=== PATIENT | female | born 1985 | race Caucasian/White ===

== ENCOUNTER → 2021-02-03 07:13 | Outpatient (CLI) | payer OTHER, SELFPAY ==
--- NOTE | 2021-02-03 | DI.US.S_ITS ---
PROCEDURE: US OB <= 14 WEEKS FETUS INDICATIONS: DATES OUTSIDE/PRIOR DATING DATA: Last menstrual period (LMP): Not available LMP-based estimated date of delivery (COCO): Not available First dating scan (date and location): 02/03/21, this study Estimated date of delivery (COCO) from first dating scan: 09/29/21, +/-5 days TECHNIQUE: Real-time scanning was performed of the fetus and maternal pelvic organs, with image documentation. Endovaginal scanning was also performed to better visualize the fetus and maternal ovaries. COMPARISON: None. FINDINGS: Embryo: [place]-rump length not identifiable, but mean sac diameter is 1.2 cm which correlates with a 6 weeks 0 day gestational age. Measurement variability in dating: +/- 4 weeks by LMP, +/- 7 days by mean sac diameter (use before 6 weeks gestation if crown-rump length not able to be measured), +/- 5 days by crown-rump length (up to 8 weeks 6 days gestation), +/- 7 days by crown-rump length (up to 13 weeks 6 days gestation). Maternal organs: Ovaries normal considering gestational status . IMPRESSION: A viable intrauterine gestation is not yet established. The mean sac diameter of the presumed intrauterine gestation measures only 1.2 cm which correlates with a gestational age of 6 weeks 0 days, +/-7 days. Please correlate with quantitative beta HCG or obtain follow-up OB ultrasound in 7-10 days to establish viable gestation. Dictated by: Oswaldo Burleson M.D. on 02/03/2021 at 9:34 Approved by: Oswaldo Burleson M.D. on 02/03/2021 at 9:36
== END ==
PROVIDERS: PCP Student in an Organized Health Care Education/Training Program; Referring Provider Student in an Organized Health Care Education/Training Program; Visit Provider Student in an Organized Health Care Education/Training Program
DX: Z36.87 Encounter for antenatal screening for uncertain dates (principal)
CPT/HCPCS: 76801; 76830

== ENCOUNTER → 2021-02-04 17:57 | Outpatient (CLI) | payer OTHER, SELFPAY ==
[2021-02-04 19:15] LABS: HCG Quantitative /Beta subunit 14707 mIU/mL
== END ==
PROVIDERS: PCP Student in an Organized Health Care Education/Training Program; Referring Provider Student in an Organized Health Care Education/Training Program; Visit Provider Internal Medicine Rheumatology
DX: Z34.00 Encounter for supervision of normal first pregnancy, unspecified trimester (principal)
CPT/HCPCS: 36415; 84702

== ENCOUNTER → 2021-02-06 18:27 | Outpatient (CLI) | payer OTHER, SELFPAY ==
[2021-02-06 19:34] LABS: HCG Quantitative /Beta subunit 17918 mIU/mL
== END ==
PROVIDERS: PCP Student in an Organized Health Care Education/Training Program; Referring Provider Student in an Organized Health Care Education/Training Program; Visit Provider Student in an Organized Health Care Education/Training Program
DX: Z34.00 Encounter for supervision of normal first pregnancy, unspecified trimester (principal)
CPT/HCPCS: 36415; 84702

== ENCOUNTER → 2021-02-15 07:11 | Outpatient (CLI) | payer OTHER, SELFPAY ==
--- NOTE | 2021-02-15 | DI.US.S_ITS ---
PROCEDURE: US OB <= 14 WEEKS FETUS INDICATIONS: GROWTH AND DATES OUTSIDE/PRIOR DATING DATA: Last menstrual period (LMP): Not available. LMP-based estimated date of delivery (COCO): Not available. First dating scan (date and location): 02/03/21. Estimated date of delivery (COCO) from first dating scan: Viable gestation not found. TECHNIQUE: Real-time scanning was performed of the fetus and maternal pelvic organs, with image documentation. Endovaginal scanning was also performed to better visualize the fetus and maternal ovaries. COMPARISON: Merged with [facility], OB <= 14 WEEKS FETUS, 02/03/2021, 7:29. FINDINGS: Embryo: Not seen Heart rate: Not applicable Measurement variability in dating: +/- 4 weeks by LMP, +/- 7 days by mean sac diameter (use before 6 weeks gestation if crown-rump length not able to be measured), +/- 5 days by crown-rump length (up to 8 weeks 6 days gestation), +/- 7 days by crown-rump length (up to 13 weeks 6 days gestation). Maternal organs: Ovaries normal . IMPRESSION: A viable intrauterine gestation is not seen. No secondary sonographic evidence of is identified. Correlation with quantitative beta HCG sequentially likely is warranted to ensure that there is no evidence of ectopic by laboratory analysis. Dictated by: Oswaldo Burleson M.D. on 02/15/2021 at 10:33 Approved by: Oswaldo Burleson M.D. on 02/15/2021 at 10:35
== END ==
PROVIDERS: PCP Student in an Organized Health Care Education/Training Program; Referring Provider Student in an Organized Health Care Education/Training Program; Visit Provider Student in an Organized Health Care Education/Training Program
DX: O36.80X0 Pregnancy with inconclusive fetal viability, not applicable or unspecified (principal)
CPT/HCPCS: 76801; 76817

== ENCOUNTER → 2021-02-22 14:28 | Outpatient (CLI) | payer OTHER, SELFPAY ==
[2021-02-22 16:31] LABS: HCG Quantitative /Beta subunit 16549 mIU/mL
== END ==
PROVIDERS: PCP Student in an Organized Health Care Education/Training Program; Referring Provider Student in an Organized Health Care Education/Training Program; Visit Provider Student in an Organized Health Care Education/Training Program
DX: Z34.00 Encounter for supervision of normal first pregnancy, unspecified trimester (principal)
CPT/HCPCS: 36415; 84702

== ENCOUNTER → 2021-03-02 09:51 | Outpatient (CLI) | payer OTHER, SELFPAY ==
[2021-03-02 11:14] LABS: HCG Quantitative /Beta subunit 4975.6 mIU/mL
== END ==
PROVIDERS: PCP Student in an Organized Health Care Education/Training Program; Referring Provider Student in an Organized Health Care Education/Training Program; Visit Provider Student in an Organized Health Care Education/Training Program
DX: Z34.00 Encounter for supervision of normal first pregnancy, unspecified trimester (principal)
CPT/HCPCS: 36415; 84702

== ENCOUNTER → 2021-03-31 09:08 | Outpatient (CLI) | payer OTHER, SELFPAY ==
[2021-03-31 10:37] LABS: HCG Quantitative /Beta subunit 60.4 mIU/mL
== END ==
PROVIDERS: PCP Student in an Organized Health Care Education/Training Program; Referring Provider Student in an Organized Health Care Education/Training Program; Visit Provider Student in an Organized Health Care Education/Training Program
DX: Z34.00 Encounter for supervision of normal first pregnancy, unspecified trimester (principal)
CPT/HCPCS: 36415; 84702

== ENCOUNTER → 2021-11-24 13:15 | Outpatient (CLI) | payer OTHER, SELFPAY ==
[2021-11-24 14:35] LABS: HCG Quantitative /Beta subunit 61582 mIU/mL
== END ==
PROVIDERS: PCP Student in an Organized Health Care Education/Training Program; Referring Provider Specialist; Visit Provider Specialist
DX: O20.0 Threatened abortion (principal)
CPT/HCPCS: 36415; 84702

== ENCOUNTER → 2021-11-28 10:06 | Outpatient (CLI) | payer OTHER, SELFPAY ==
[2021-11-28 16:54] LABS: HCG Quantitative /Beta subunit 96824 mIU/mL
== END ==
PROVIDERS: PCP Student in an Organized Health Care Education/Training Program; Referring Provider Specialist; Visit Provider Specialist
DX: O20.0 Threatened abortion (principal); Z3A.01 Less than 8 weeks gestation of pregnancy
CPT/HCPCS: 36415; 84702

== ENCOUNTER → 2021-12-19 15:17 | Outpatient (CLI) | payer OTHER, SELFPAY ==
[2021-12-19 16:37] LABS: Add Manual Diff / Slide Review NO; Basophils Absolute Auto 0 /uL (0-100); Basophils Percent Auto 0.4 % (0-2); Eosinophils Absolute Auto 100 /uL (0-450); Eosinophils Percent Auto 0.7 % (2-4); Hematocrit 35.8 % (36-46); Hemoglobin 12.4 g/dL (12.0-16.0); Lymphocytes Absolute Auto 2400 /uL (1100-4500); Lymphocytes Percent Auto 28.9 % (25-40); Mean Corpuscular HGB Conc 34.6 % (30-36); Mean Corpuscular Hemoglobin 33.3 PG (26-34); Mean Corpuscular Volume 96.2 fL (80-100); Monocytes Absolute Auto 400 /uL (0-900); Monocytes Percent Auto 5.1 % (3-14); Neutrophils Absolute Auto 5500 /uL (1500-7000); Neutrophils Percent Auto 64.9 % (50-75); Platelet Count 233 X10^3/uL (150-400); Red Blood Cell Count 3.73 X10^6/uL (4.0-5.2); Red Cell Distribution Width 12.8 % (11.6-14.8); White Blood Cell Count 8.5 X10^3/uL (4.5-11.0)
[2021-12-19 16:54] LABS: Appearance Urine UA CLEAR; Bilirubin Urine UA NEGATIVE (NEGATIVE); Color Urine UA YELLOW; Glucose Urine UA NEGATIVE (Negative); Ketones Urine UA NEGATIVE (NEGATIVE); Leukocyte Esterase Urine UA NEGATIVE (NEGATIVE); Nitrite Urine UA NEGATIVE (Negative); Occult Blood Urine UA TRACE-LYSED (Negative); Protein Urine UA NEGATIVE (Negative); Urobilinogen Urine UA 0.2 E.U./dL (0.2)
[2021-12-19 17:58] LABS: HIV 1 & 2 Ab/Ag 4th Gen Combo NEGATIVE (NEGATIVE); Hep C Virus Ab w/Reflex Quant NEGATIVE s/c (NEGATIVE); Hepatitis B Surface Antigen NEGATIVE s/c (NEGATIVE); Rubella Antibody IgG > 350.0 IU/mL (>15)
[2021-12-20 05:23] LABS: RPR Screen Non Reactive (Non Reactive)
[2021-12-20 09:27] LABS: Varicella IgG Antibody 1884 index (Immune >165)
== END ==
PROVIDERS: PCP Student in an Organized Health Care Education/Training Program; Referring Provider Specialist; Visit Provider Specialist
DX: Z34.81 Encounter for supervision of other normal pregnancy, first trimester (principal)
CPT/HCPCS: 36415; 80055; 81003; 86787; 86803; 86850; 86900; 86901; 87389

== ENCOUNTER → 2022-02-14 15:09 | Outpatient (CLI) | payer OTHER, SELFPAY ==
[2022-02-16 20:35] LABS: AFP Value 43.3 ng/mL (.); Gest Age on Col Date 18.4 weeks (.); Insulin Dep Diabetes No (.); OSBR Risk 1IN 10000 (.); Results Report (.); Test Results *Screen Negative* (.)
== END ==
PROVIDERS: PCP Student in an Organized Health Care Education/Training Program; Referring Provider Obstetrics & Gynecology; Visit Provider Obstetrics & Gynecology
DX: Z34.82 Encounter for supervision of other normal pregnancy, second trimester (principal); Z3A.18 18 weeks gestation of pregnancy
CPT/HCPCS: 36415; 82105

== ENCOUNTER → 2022-04-19 09:16 | Outpatient (CLI) | payer OTHER, SELFPAY ==
[2022-04-19 11:48] LABS: Hematocrit 36.6 % (36-46); Hemoglobin 12.6 g/dL (12.0-16.0)
[2022-04-19 12:31] LABS: GTT (PREG) 1 Hour PP 50gm Dose 95 mg/dL (76-139)
== END ==
PROVIDERS: PCP Student in an Organized Health Care Education/Training Program; Referring Provider Obstetrics & Gynecology; Visit Provider Obstetrics & Gynecology
DX: Z34.82 Encounter for supervision of other normal pregnancy, second trimester (principal); Z3A.25 25 weeks gestation of pregnancy
CPT/HCPCS: 36415; 82950; 85014; 85018

== ENCOUNTER → 2022-05-24 08:06 | Outpatient (CLI) | payer OTHER, SELFPAY | PROVIDERS: PCP Student in an Organized Health Care Education/Training Program; Visit Provider Obstetrics & Gynecology | DX: Z34.83 Encounter for supervision of other normal pregnancy, third trimester (principal); Z3A.32 32 weeks gestation of pregnancy | CPT/HCPCS: 87086 ==

== ENCOUNTER → 2022-06-20 16:33 | Outpatient (CLI) | payer OTHER, SELFPAY ==
[2022-06-21 15:26] LABS: Strep Grp B PCR NEG for Grp B Strep
== END ==
PROVIDERS: PCP Student in an Organized Health Care Education/Training Program; Visit Provider Obstetrics & Gynecology
DX: Z34.83 Encounter for supervision of other normal pregnancy, third trimester (principal); Z3A.36 36 weeks gestation of pregnancy
CPT/HCPCS: 87653

== ENCOUNTER 2022-06-20 16:34 | Outpatient (CLI) | payer OTHER, SELFPAY | END 2022-06-20 18:03 | disposition home or self-care (01) | LOC: OB 06-23 16:43 | PROVIDERS: PCP Student in an Organized Health Care Education/Training Program; Referring Provider Obstetrics & Gynecology; Visit Provider Obstetrics & Gynecology | DX: O36.5930 Maternal care for other known or suspected poor fetal growth, third trimester, not applicable or unspecified (principal); Z3A.36 36 weeks gestation of pregnancy; Z34.83 Encounter for supervision of other normal pregnancy, third trimester | CPT/HCPCS: 59025; 87653; G0378; G0379 ==

== ENCOUNTER 2022-06-23 12:00 | Outpatient (CLI) | payer OTHER, SELFPAY ==
[2022-06-23 13:50] LABS: Alanine Aminotransferase 15 IU/L (<35); Albumin 3.4 g/dL (3.5-5.0); Albumin Globulin Ratio 1.1 (1.0-2.8); Alkaline Phosphatase 119 U/L (38-126); Aspartate Aminotransferase 24 IU/L (14-36); BUN Creatinine Ratio 19.2 (6-22); Bilirubin Total 0.3 mg/dL (0.2-1.3); Blood Urea Nitrogen 14 mg/dL (7-17); Calcium 8.7 mg/dL (8.4-10.2); Carbon Dioxide 23 mmol/L (22-32); Chloride 107 mmol/L (98-107); Estimated Glomerular Filt Rate > 60 mL/min (>60); Glucose 70 mg/dL (70-100); HEMOLYSIS < 15 (0-50); Potassium 3.9 mmol/L (3.4-5.1); Sodium 136 mmol/L (137-145); Total Protein 6.4 g/dL (6.3-8.2)
[2022-06-23 13:58] LABS: Creatinine Urine Random 154.3 mg/dL
[2022-06-23 14:00] LABS: Protein (Total) Urine Random < 5 mg/dL (0-12); Protein Creatinine Ratio Urine 0.03 GRAM/24H
--- NOTE | 2022-06-23 14:14 | P.TNLD_ITS ---
Visit Information Visit Information Date of evaluation: 06/23/22 Primary OB Provider: Karly Massey On-call OB Provider: Karly Massey Reason for Evaluation: Yes non-stress test Comments/Additional reasons for admission: Here for a nonstress test for complete biophysical profile due to growth restriction. Recent office ultrasound showed EFW 7 percentile. 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 BP today 8/8. On presentation today BP mildly elevated as below. She also had a mild elevated BP 3 days ago, on 06/20, when here for NST as well which then decreased back to normal. Just before the NST BP had been normal in the office, but then discussion ensued regarding growth restriction. She denies headache, scotomata, nausea or abdominal pain. She is scheduled for induction of labor in 3 days for the growth restriction. Vital Signs Vital Signs: Initial BP 135/90 then 147/90, 142/88. After approximately 1 hour BP 137/83 On 06/20 BP 141/91, 143/95, then 130/85 [facility] Medical History (Updated 06/21/22 @ 10:35 by Val Clark MD) Chickenpox Encounter for supervision of other normal , unspecified trimester UTI (urinary tract infection) Surgical History (Updated 12/18/21 @ 22:06 by Astrid Jacobo) Anesthesia No history of previous surgery [place] teeth removed Family History (Updated 12/18/21 @ 22:07 by Astrid Jacobo) Father Hypertension Hyperlipidemia Overweight Mother Hypertension Hyperlipidemia Depression Overweight Mental health problem Sister Overweight Social History (Updated 12/12/21 @ 16:15 by Barb Tejada RN) marital status: number of children: 0 household members: spouse lives independently: Yes housing: house pets and animals: Yes (2 dogs) education level: master's degree occupational status: employed current occupational exposures/hazards: Yes 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 travel history: over 6 months ago seatbelt use: always water heater temp set < 120 deg: Yes working smoke detector in home: Yes fire extinguisher in home: Yes carbon monox detector in home: Yes firearms in home: No do you feel safe at home: Yes Smoking Status: Never smoker second hand exposure: No alcohol intake: former substance use type: does not use during the past year weight has: remained stable well-balanced diet: daily or most days daily servings fruits/ve or more times/day caffeine: Yes (1 cup coffee/day) Type(s) of exercise: regular exercise frequency: 3-4 times per week Exam Vital Signs (past 8 hours): BP 135 -147/90, then after while decreased to 137/83 Narrative Exam Narrative: General: Well-appearing female in no acute distress Abdomen gravid, nontender Extremities no edema DTR 1+ patellar reflex Objective Labs Result Diagrams: 06/23/22 13:00 06/23/22 13:00 Labs: Laboratory Results - last 24 hr 06/23/22 06/23/22 06/23/22 13:00 13:00 13:00 WBC 8.7 RBC 3.63 L Hgb 12.5 Hct 36.5 MCV 100.5 H MCH 34.3 H MCHC 34.2 RDW 13.3 Plt Count 213 Neut % (Auto) 68.1 Lymph % (Auto) 25.8 [place] % (Auto) 5.2 Eos % (Auto) 0.4 L Baso % (Auto) 0.5 Neut # (Auto) 5900 Lymph # (Auto) 2200 [place] # (Auto) 500 Eos # (Auto) 0 Baso # (Auto) 0 Sodium 136 L Potassium 3.9 Chloride 107 Carbon Dioxide 23 BUN 14 Creatinine 0.73 Estimated GFR > 60 BUN/Creatinine Ratio 19.2 Glucose 70 Calcium 8.7 Total Bilirubin 0.3 AST 24 ALT 15 Alkaline Phosphatase 119 Total Protein 6.4 Albumin 3.4 L Globulin 3.0 Albumin/Globulin Ratio 1.1 U Random Total Protein < 5 Urine Creatinine 154.3 Protein/Creatinin Ratio 0.03 Evaluation Evaluation Baseline heart rate: 135 Variability: Moderate (11-25) monitor accelerations: Present Monitor Decelerations: Absent Category of Tracing: Reactive Status: Category l Diagnosis, Plan/Disposition Plan/Disposition Plan: 37 yo P0 with EGA 36wk6d with 1. growth restriction, EFW 6 percentile 2. Probable developing gestational hypertension, no signs of preeclampsia Reassuring testing today with reactive NST, BPP 10/10. Preeclamptic labs ordered and were normal. Urine protein/creatinine ratio was 0.03, normal. She is already scheduled for induction of labor for the growth restriction in 3 days. Reviewed symptoms of preeclampsia to call for. Patient also to check routine activity and call for decreased movement, as well as calling for other routine signs and symptoms of labor. OB Disposition: home
== END 2022-06-23 14:15 | disposition home or self-care (01) ==
LOC: LABOR 13:55 → OB 07-18 09:55
PROVIDERS: Obstetrics & Gynecology; PCP Student in an Organized Health Care Education/Training Program; Referring Provider Obstetrics & Gynecology; Visit Provider Obstetrics & Gynecology
DX: O36.5930 Maternal care for other known or suspected poor fetal growth, third trimester, not applicable or unspecified (principal); Z3A.36 36 weeks gestation of pregnancy
CPT/HCPCS: 59025; 59050; 80053; 82570; 84156; G0378; G0379

== ENCOUNTER 2022-06-26 06:53 | Inpatient (IN) | payer OTHER, SELFPAY ==
[2022-06-26 07:58] LABS: Add Manual Diff / Slide Review NO; Basophils Absolute Auto 0 /uL (0-100); Basophils Percent Auto 0.6 % (0-2); Eosinophils Absolute Auto 0 /uL (0-450); Eosinophils Percent Auto 0.5 % (2-4); Hematocrit 35.9 % (36-46); Hemoglobin 12.4 g/dL (12.0-16.0); Lymphocytes Absolute Auto 2100 /uL (1100-4500); Lymphocytes Percent Auto 26.2 % (25-40); Mean Corpuscular HGB Conc 34.6 % (30-36); Mean Corpuscular Hemoglobin 34.2 PG (26-34); Mean Corpuscular Volume 98.9 fL (80-100); Monocytes Absolute Auto 500 /uL (0-900); Monocytes Percent Auto 5.9 % (3-14); Neutrophils Absolute Auto 5300 /uL (1500-7000); Neutrophils Percent Auto 66.8 % (50-75); Platelet Count 206 X10^3/uL (150-400); Red Blood Cell Count 3.63 X10^6/uL (4.0-5.2); Red Cell Distribution Width 13.2 % (11.6-14.8)
[2022-06-26] MEDS: LACTATED RINGERS 1,000 ML 100 ML IV (08:08)
[2022-06-26] MEDS: OXYTOCIN PREMIX 30 UNIT/500 ML PLAST..BAG IV (08:08)
[2022-06-26 08:19] VITALS: BP 143/89
[2022-06-26 08:26] LABS: COVID19 -Nasal RAPID Negative (Negative)
--- NOTE | 2022-06-26 17:24 | P.HPOB_ITS ---
OB HPI Date/Time Date of admission: 06/26/22 Date Patient Seen: 06/26/22 Time Patient Seen: 15:00 History of Present Condition Chief complaint: INDUCTION COCO Calculator Estimated Delivery Date Method Current WG Current Estimate 07/15/22 LMP (Certain) 37w 3d Other Estimates 07/15/22 Ultrasound #1 37w 3d Estimated Gestational Age (weeks): 37+2 : 2 Para: 0 care: good care, initiated at week # (10), number of visits (9) and pounds weight gain (17) Dating criteria OB: LMP confirmed by 1st trimester US Ultrasounds: normal 1st trimester US and normal mid trimester US Obstetrical complications: growth restriction Medical complications OB: none Indications Indication for induction OB: intra-uterine growth restriction Preadmission Labs Last OB Lab Results: Blood Type O Positive 06/26/22 07:45 Antibody Screen Negative 06/26/22 07:45 Hematocrit 35.9 % (36-46) L 06/26/22 07:45 Hemoglobin 12.4 g/dL (12.0-16.0) 06/26/22 07:45 Hepatitis B Surface Antigen Negative s/c (NEGATIVE) 12/19/21 15 :30 Hepatitis C Antibody Negative s/c (NEGATIVE) 12/19/21 15:30 Rubella Antibody > 350.0 IU/mL (>15) 12/19/21 15:30 Varicella-Zoster IgG Antibody 1884 index (Immune >165) 12/19/21 15:30 Glucose 1 Hour 95 mg/dL (76-139) 04/19/22 10:48 Group B Streptococcus (PCR) Neg for grp b strep 06/20/22 16:33 -: Chlamydia screen: negative, Gonorrhea screen: negative and Urine: negative -: PAP smear: Normal Genetic Screens: Cell-free DNA: Normal (normal female) and Alpha-fetoprotein: Normal External Labs -: Urine: negative Evaluation Evaluation Baseline heart rate: 135 Variability: Moderate (11-25) monitor accelerations: Present Monitor Decelerations: Absent Dilation (cm): 1 Effacement (%): 75 Dilation: 1-2 cm Effacement: 60-70% station: -1 Position of cervix: mid Consistency: soft Joseph score: 8 [facility] Medical History (Updated 06/21/22 @ 10:35 by Val Clark MD) Chickenpox Encounter for supervision of other normal , unspecified trimester UTI (urinary tract infection) Surgical History (Updated 12/18/21 @ 22:06 by Astrid Jacobo) Anesthesia No history of previous surgery [place] teeth removed Family History (Updated 12/18/21 @ 22:07 by Astrid Jacobo) Father Hypertension Hyperlipidemia Overweight Mother Hypertension Hyperlipidemia Depression Overweight Mental health problem Sister Overweight Social History (Updated 12/12/21 @ 16:15 by Barb Tejada RN) marital status: number of children: 0 household members: spouse lives independently: Yes housing: house pets and animals: Yes (2 dogs) education level: master's degree occupational status: employed current occupational exposures/hazards: Yes 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 travel history: over 6 months ago seatbelt use: always water heater temp set < 120 deg: Yes working smoke detector in home: Yes fire extinguisher in home: Yes carbon monox detector in home: Yes firearms in home: No do you feel safe at home: Yes Smoking Status: Never smoker second hand exposure: No alcohol intake: former substance use type: does not use during the past year weight has: remained stable well-balanced diet: daily or most days daily servings fruits/ve or more times/day caffeine: Yes (1 cup coffee/day) Type(s) of exercise: regular exercise frequency: 3-4 times per week Meds Home Medications and Allergies Home Medications Medication Instructions Recorded Confirmed Type prenat.vits,matteo,[id number] 1 tab PO DAILY 11/24/21 06/20/22 History aspirin 81 mg tablet,delayed 81 mg PO DAILY 01/18/22 06/20/22 History release (Adult Aspirin Regimen) Allergies Allergy/AdvReac Type Severity Reaction Status Date / Time No Known Drug Allergies Allergy Unverified 06/20/22 15:33 OB Exam Narrative Exam Narrative: Generally: No acute distress Lungs: Clear to auscultation bilaterally Cardiovascular: Regular rate and rhythm Fundal height: 35 cm Estimated weight 5-1/2 lb Extremities: No edema Objective Labs Result Diagrams: 06/26/22 07:45 Labs: Laboratory Results - last 24 hr 06/26/22 06/26/22 06/26/22 07:45 07:45 07:59 WBC 8.0 RBC 3.63 L Hgb 12.4 Hct 35.9 L MCV 98.9 MCH 34.2 H MCHC 34.6 RDW 13.2 Plt Count 206 Neut % (Auto) 66.8 Lymph % (Auto) 26.2 [place] % (Auto) 5.9 Eos % (Auto) 0.5 L Baso % (Auto) 0.6 Neut # (Auto) 5300 Lymph # (Auto) 2100 [place] # (Auto) 500 Eos # (Auto) 0 Baso # (Auto) 0 SARS-CoV-2 (PCR) Negative Blood Type O Positive Antibody Screen Negative Assessment and Plan Assessment and Plan Assessment and Plan narrative: Assessment: 37-year-old 2 para 0 at 37-,2/7 weeks gestation for induction of labor due to growth restriction Plan: Pitocin per protocol 1 Epidural as necessary Expected management to spontaneous vaginal delivery Time Spent with Patient Total time spent with greater than 50% in coordination of care (as documented) at patient's floor/unit and/or counseling patient:: 15-24 minutes
--- NOTE | 2022-06-26 17:25 | PM.OBPNLAB ---
Date/Time Date Patient Seen: 06/26/22 Time Patient Seen: 17:25 Pain Control Pain control: tolerating well Pelvic Exam Dilation (cm): 3 Effacement (%): 85 station: -1 Amniotic membrane status: Intact Contractions Contractions on admission: none Pitocin rate (mU/min): 7 Contraction frequency (min): 3 Contraction duration (min): 1 Status status: Category l Heart Rate Baseline: 140 Monitor Accelerations: Present Monitor Decelerations: Absent Monitor Variability: Moderate Assessment and Plan Assessment: induction ongoing Comments: Will discontinue Pitocin at 7 pm Restart in am Pt may eat
[2022-06-27] MEDS: LACTATED RINGERS 1,000 ML 100 ML IV ×2 (05:47→12:45)
[2022-06-27] MEDS: OXYTOCIN PREMIX 30 UNIT/500 ML PLAST..BAG IV (05:48)
--- NOTE | 2022-06-27 18:52 | PM.OBPNLAB ---
Date/Time Date Patient Seen: 06/27/22 Time Patient Seen: 06:45 Pelvic Exam Amniotic membrane status: Intact Contractions Contractions on admission: none Monitor mode: External Pitocin rate (mU/min): 3 Contraction frequency (min): 3 Contraction duration (min): 1 Contraction intensity: Mild Status status: Category l Heart Rate Baseline: 135 Monitor Accelerations: Present Monitor Decelerations: Absent Monitor Variability: Moderate Assessment and Plan Assessment: induction ongoing Plan: continuous present management Comments: Will attempt AROM at 10am Expectant management to Epidural prn
--- NOTE | 2022-06-27 18:54 | PM.OBPNLAB ---
Date/Time Date Patient Seen: 06/27/22 Time Patient Seen: 10:00 Pain Control Pain control: tolerating well Pelvic Exam Dilation (cm): 3 Effacement (%): 85 station: -1 Amniotic membrane status: Intact Contractions Monitor mode: External Pitocin rate (mU/min): 7 Contraction frequency (min): 3 Contraction pattern: Regular Contraction intensity: Moderate Status status: Category l Heart Rate Baseline: 135 Monitor Accelerations: Present Monitor Decelerations: Absent Monitor Variability: Moderate Assessment and Plan Assessment: active labor Comments: AROM with small amount of clear amniotic fluid
--- NOTE | 2022-06-27 18:55 | PM.OBPRVD ---
Events: Labor Induction and Other ( growth restriction) Labor & Delivery Delivery date: 06/27/22 Cervical ripening method: none Induction method: per pitocin protocol Delivery augmentation: rupture of membranes Delivery monitor: external FHT and external uterine Route of delivery: Episiotomy description: None L&D Laceration Description: Superficial (bilateral labial) Delivery repair: chromic Quantitative Blood Loss: 350 Anesthesia Type: Epidural Complications: None Narrative: Patient complete and pushed x 26 min. At 1807, a live female infant delivered spontaneously over an intact perineum, in the JOSÉ presentation. The remainder of the body delivered spontaneously and was placed on mom's abdomen. After the cord stopped pulsing, the cord was double-clamped and cut. Pitocin was given in the IVF's. The placenta delivered intact with a 3 vessel cord at 1814. The fundus was massaged to firm. Superficial lacerations of bilateral labia minora were repaired in the usual fashion. Hemostasis was achieved. EBL 350cc. . Epidural analgesia. Apgars 9 at 1 minute and 9 at 5 minutes. Mom and infant stable to recovery. EBL 350cc. Lap, needle, instrument and 4x4 counts correct. [place] Baby 1: gender: Female Presentation: vertex Position: Left Occiput Anterior Placenta delivery description: Spontaneous Cord Vessel Description: 3 Vessels score (1 min): 9 score (5 min): 9 weight: 4 lb 12 oz Plan for aftercare: Routine care
[2022-06-27] MEDS: LANOLIN OINT 7 GM 1 APPLIC TOP (23:26)
[2022-06-27] MEDS: DERMOPLAST SPRAY 20% 60 ML 1 SPRAY TOP (23:26)
[2022-06-27] MEDS: IBUPROFEN 600 MG TABLET PO (23:27)
[2022-06-27] MEDS: ACETAMINOPHEN 325 MG TABLET 650 MG PO (23:27)
[2022-06-28] MEDS: IBUPROFEN 600 MG TABLET PO ×3 (05:36→19:38)
[2022-06-28] MEDS: ACETAMINOPHEN 325 MG TABLET 650 MG PO ×3 (05:36→19:38)
[2022-06-28] MEDS: DOCUSATE 100 MG CAPSULE PO (10:47)
--- NOTE | 2022-06-28 21:14 | P.PNOB_ITS ---
Subjective - OB Subjective Patient comments: no complaints [place] baby status: doing well and nursing well [place] feeding status: exclusively breast feeding Date Patient Seen: 06/28/22 Time Patient Seen: 13:05 Interval history: PPD#1 s/p . No c/o. BF going well. Bleeding tapering. Exam Narrative Exam Narrative: Generally: Lying in bed, no acute distress Fundus: Firm U/-3 Ext: Neg Eda's, no edema Objective Labs Result Diagrams: 06/26/22 07:45 Assessment & Plan Plan day: 1 plan OB: routine care Comments: Anticipate discharge 06/29/22 Time Spent With Patient Time: Total time spent is greater than 50% in coordination of care (as documented) at patient's floor/unit and/or counseling patient: Time with patient: less than 15 minutes
[2022-06-29] MEDS: IBUPROFEN 600 MG TABLET PO (04:04)
[2022-06-29] MEDS: ACETAMINOPHEN 325 MG TABLET 650 MG PO (04:04)
[2022-06-29 05:15] LABS: Hematocrit 27.3 % (36-46); Hemoglobin 9.4 g/dL (12.0-16.0)
[2022-06-29 12:26] VITALS: BP 139/98; PULSE 111; RESP 16; TEMP 36.8
--- NOTE | 2022-07-29 15:26 | P.DS_ITS ---
Discharge Providers Provider Date of admission: 06/26/22 06:53 Discharge Date: 06/29/22 Primary care physician: Brittney Watt MD Consults: 06/26/22 07:34 Consult to Anesthesiology Urgent Comment: Consulting Provider: Val Clark Reason for consultation: epidural 06/28/22 18:41 Consult to Computer Help Desk Representative Routine Comment: Discharge provider: Val Clark MD Summary Hospital Course Date Patient Seen: 07/29/22 Time Patient Seen: 10:30 Diagnoses: Induction of labor with Pitocin growth restriction 37-,2/7 weeks gestation Artificial rupture of membranes Epidural analgesia Spontaneous vaginal delivery Bilateral superficial labial lacerations and repair Hospital Course: Patient is a 37-year-old 2 para 1 who presented on June 26, 2022 for induction of labor at 37-,2/7 weeks gestation due to growth restriction. She was started on Pitocin. She did not have much progression on that first day. Pitocin was stopped and restarted on the morning of June 27, 2022. Artificial rupture of membranes was performed. Patient received an epidural for pain management. She had a spontaneous vaginal delivery on June 27, 2022 without complication. Her course was unremarkable and she was discharged home on June 29, 2022. Peripartum Data Delivery Method: Natural Vaginal Laceration Description: Labial and Superficial Episiotomy description: None Procedures: Pitocin induction of labor Artificial rupture of membranes Epidural analgesia Spontaneous vaginal delivery Bilateral superficial labial laceration repair complications: none [place] 1: Gender: Female Status at Discharge Cognitive/behavioral status at discharge: oriented Functional status at discharge: independent ambulation Overall status at discharge: patient is progressing back to baseline Time Spent with Patient Time attestation: Total time spent providing and/or coordinating discharge services: Time spent: Less than 30 minutes Objective Labs Result Diagrams: 06/29/22 04:55 Exam Narrative Exam Narrative: Generally: Patient is sitting up in bed, holding infant, no acute distress Fundus: Firm at U -3 Extremities: No edema, negative [place] Discharge Plan Discharge Plan Patient Disposition: Home Provider Discharge Comment: Call with fever, chills, or bleeding vaginally more than a pad in an hour Ibuprofen 600 mg every 6 hours as needed for cramping Tylenol 650 mg every 6 hours as needed Discharge orders & Medications Prescriptions: Continued prenat.vits,matteo,[id number] Tablet 1 tab PO DAILY Discontinued aspirin [Adult Aspirin Regimen] 81 mg tablet,delayed release (DR/EC) 81 mg PO DAILY Follow up/Referrals: Val Clark MD [Physician] - 6 Weeks (Appointment with August 08 at 1:15pm; check in time, appointment 1:30pm.) Diet/Activity/Treatments Diet: Regular Activity: Nothing in the vagina for 6 weeks No bathing, showers only Skin/Wound/Dressing Care Report to your healthcare provider any signs of infection, such as:: chills, fever, increased pain, unusual drainage and unusual redness Visit Report/Discharge Packet Instructions: DI for Labor and Delivery, Vaginal Discharge Data Primary Care Provider: Brittney Watt
== END 2022-06-29 14:08 | disposition home or self-care (01) | DRG 807 ==
PROVIDERS: Admitting Provider Obstetrics & Gynecology; PCP Student in an Organized Health Care Education/Training Program; Referring Provider Obstetrics & Gynecology; Visit Provider Obstetrics & Gynecology
DX: O36.5930 Maternal care for other known or suspected poor fetal growth, third trimester, not applicable or unspecified (principal); Z37.0 Single live birth; Z3A.37 37 weeks gestation of pregnancy; O70.0 First degree perineal laceration during delivery; Z20.822 Contact with and (suspected) exposure to COVID-19
CPT/HCPCS: 36415; 59050; 59400; 59409; 85014; 85018; 85025; 86850; 86900; 86901; 87635; C9803; G0379; J2590

== ENCOUNTER → 2023-05-08 09:01 | Outpatient (CLI) | payer OTHER, SELFPAY ==
[2023-05-09 13:49] LABS: Candida species Negative (Negative); Gardnerella vaginalis Negative (Negative); Trichomoas vaginalis Negative (Negative)
== END ==
PROVIDERS: PCP Student in an Organized Health Care Education/Training Program; Visit Provider Obstetrics & Gynecology
DX: N89.8 Other specified noninflammatory disorders of vagina (principal)
CPT/HCPCS: 87480; 87510; 87660